=== PATIENT | female | born 1980 | race African-American/Black ===

== ENCOUNTER 2024-10-05 05:56 | Inpatient (IN) | payer OTHER ==
[2024-10-04 15:04] VITALS: BMI 27.6
[2024-10-05] MEDS ORDERED: ONDANSETRON 4 MG/2 ML VIAL ONE (09:38)
[2024-10-05] MEDS ORDERED: DEXAMETHASONE SOD PHOSPHATE 4 MG/1 ML VIAL ONE (09:38)
[2024-10-05] MEDS ORDERED: METOCLOPRAMIDE HCL INJECTION 10 MG/2 ML VIAL ONE (09:38)
[2024-10-05] MEDS ORDERED: ceFAZolin SODIUM 1 GM VIAL ONE ×2 (09:38→11:04)
[2024-10-05] MEDS ORDERED: LIDOCAINE HCL 1%, 10 MG/ML (20ML VIAL) ONE (12:39)
[2024-10-05] MEDS ORDERED: LIDOCAINE HCL/PF 2% SDV 5ML VIAL ONE (12:54)
[2024-10-05] MEDS ORDERED: SUCCINYLCHOLINE CHLORIDE 200 MG/10 ML SYRINGE ONE (12:55)
[2024-10-05] MEDS ORDERED: MIDAZOLAM HCL 2 MG/2 ML SINGLE DOSE VIAL ONE (12:55)
[2024-10-05] MEDS ORDERED: ROCURONIUM BROMIDE 50 MG/5 ML SYRINGE ONE (12:55)
[2024-10-05] MEDS ORDERED: PROPOFOL 20 ML ONE (12:55)
[2024-10-05] MEDS: ceFAZolin SODIUM 1 GM VIAL IVPB ONE ×3 (13:19)
[2024-10-05] MEDS ORDERED: hydrALAZINE HCL 20 MG/ML VIAL ONE (14:07)
[2024-10-05] MEDS ORDERED: GLYCOPYRROLATE 0.2 MG/1 ML VIAL ONE (14:36)
[2024-10-05] MEDS ORDERED: NEOSTIGMINE METHYLSULFATE 0.5 MG/1 ML - 10 ML MDV ONE (14:37)
[2024-10-05] MEDS ORDERED: ONDANSETRON 4 MG/2 ML VIAL IVPUSH PRN (14:43)
[2024-10-05] MEDS ORDERED: PROMETHAZINE HCL 25 MG/1 ML VIAL IVPB PRN (14:43)
[2024-10-05] MEDS: ACETAMINOPHEN 1000 MG/100 ML BAG IVPB ONE ×2 (15:25→18:52)
[2024-10-05] MEDS: ACETAMINOPHEN INJECTION 100 ML ONE (15:25)
[2024-10-05] MEDS ORDERED: ACETAMINOPHEN 325 MG TABLET (FP) PO PRN (15:54)
[2024-10-05] MEDS ORDERED: IBUPROFEN 800 MG/8 ML IJ IVPB PRN (15:54)
[2024-10-05] MEDS: LACTATED RINGERS SOLUTION 1,000 ML IV SCH (18:48)
[2024-10-05] MEDS: TRANEXAMIC ACID 1000 MG/10 ML VIAL IVPUSH ONE (18:52)
[2024-10-05] MEDS: CEFAZOLIN 2 GM in DEXTROSE 5%-WATER - 100 ML IVPB ONE (18:52)
[2024-10-05] MEDS: CEFAZOLIN 2 GM/D5W 2 GM/50 ML ML IVPB SCH (19:06)
[2024-10-05] MEDS: IBUPROFEN 600 MG TABLET (FP) PO PRN (20:42)
[2024-10-06] MEDS ORDERED: oxyCODONE HCL 5 MG TABLET PO PRN ×2 (03:55)
[2024-10-06 08:52] LABS: HEMATOCRIT 42.1 % (34.1-44.9); HEMOGLOBIN 13.3 g/dL (11.2-15.7); MCHC 31.6 g/dl (32.2-35.5); MEAN CELL VOLUME 79.9 fl (79.4-94.8); MEAN PLT VOLUME 10.9 fl (9.4-12.3); PLATELET COUNT 214 x10^3/uL (182-369); RDW 15.6 % (12.2-17.1)
[2024-10-06] MEDS: ASCORBIC ACID 500 MG TABLET (FP) PO SCH (11:06)
[2024-10-06] MEDS: ENOXAPARIN NA (PORCINE) 40 MG/0.4 ML DISP.SYRIN SQ SCH (11:06)
[2024-10-06] MEDS: FERROUS SO4 325 MG TABLET (FP) PO SCH (11:06)
[2024-10-06] MEDS ORDERED: BISACODYL 10 MG SUPP.RECT RC PRN (15:54)
[2024-10-06] MEDS: BENZOCAINE/MENTH/CETYLPYRD CL 1 EACH LOZENGE MM PRN (20:29)
[2024-10-06] MEDS: SENNOSIDES/DOCUSATE COMBO (SENNA PLUS) TABLET (UD) PO PRN (21:12)
[2024-10-07] MEDS: SIMETHICONE 80 MG TAB.CHEW (FP) PO PRN (09:01)
[2024-10-07 10:39] VITALS: BP 136/84; PULSE 91; RESP 17; TEMP 98.1
== END 2024-10-07 12:16 | disposition home or self-care (01) | DRG 743 ==
LOC: J2C 05:56 → J8W 17:36
PROVIDERS: ADMIT Obstetrics & Gynecology; ATTEND Obstetrics & Gynecology
PROC: 0UT90ZL Resection of Uterus, Supracervical, Open Approach (ICD-10-PCS; principal; 2024-10-05 13:00)
DX: D25.9 Leiomyoma of uterus, unspecified (principal); R10.2 Pelvic and perineal pain; N92.0 Excessive and frequent menstruation with regular cycle
CPT/HCPCS: 36415; 85027; 86900; 88307-TC; 94760; J0131